=== PATIENT | male | born 1980 | race Caucasian/White ===

== ENCOUNTER 2022-10-18 05:42 | Emergency (ER) | payer OTHER ==
[~2022-10-18] VITALS: Ht 177.8 cm; Wt 95.3 kg
[2022-10-18 05:55] VITALS: BP_SYST 152; PULSE 100; RESP 20; TEMP 98; O2SAT 98
--- NOTE | 2022-10-18 06:03 | NUR ---
PT BIB FROM HOME STATUS FALL LAST NIGHT AFTER REACHING A BOX USING LADDER. LOWER BACK PAIN 10/13, ALEVE WAS TAKEN AT 2300, LOWER BACK FELL STIFF AND PAIN. DAMON ELIZABETH
--- NOTE | 2022-10-18 06:15 | NUR ---
ER at bedside examining patient.
--- NOTE | 2022-10-18 06:19 | NUR ---
pt bib self. c/o back pain related to fall that occured 10/17 at around 9pm. Pt states to have been on a 9ft tall ladder when he missed a step and fell to the floor. pt denies LOC. Pt states back pain woke him up and prompted him to come to ER. Pt states pain 11/13. Pt denies N/V/D. Pt denies SOB. Bruising and redness noted on pt L back. No active bleeding or lacerations noted. Pt AAOX4. VSS. Skin dry and intact. PERRLA. Pt speaking full complete sentences. pt in bed with side rails up
--- NOTE | 2022-10-18 06:30 | NUR ---
Patient transported to radiology via WHEELCHAIR, accompanied by TECH.
--- NOTE | 2022-10-18 07:21 | NUR ---
Report received from ROMEO Olmos
--- NOTE | 2022-10-18 07:36 | NUR ---
Patient a&ox4 and stable.
[2022-10-18] MEDS ORDERED: TRAM50TA2 PO (08:23)
[2022-10-18] MEDS ORDERED: IBUP-1971 PO (08:23)
[2022-10-18] MEDS ORDERED: MORPHINE 4 MG INJ. 4 MG/ML VIAL IM ONE (08:30)
[2022-10-18] MEDS ORDERED: MORPHINE 4 MG INJ. 4 MG/ML VIAL IVP ONE (08:30)
[2022-10-18 09:30] VITALS: BP_SYST 145; PULSE 74; RESP 17; TEMP 97.3; O2SAT 98
--- NOTE | 2022-10-18 09:32 | NUR ---
Patient given written and verbal discharge instructions and verbalizes understanding. ER MD DR PEREZ discussed with patient the results and treatment provided. Patient in stable condition. ID arm band removed. Rx of MOTRIN AND TRAMODOL given. Patient educated on pain management and to follow up with PMD. Pain Scale 5/10. Opportunity for questions provided and answered. Medication side effect fact sheet provided.
== END 2022-10-18 09:32 | disposition home or self-care (01) ==
LOC: SED 05:42
DX: S33.5XXA Sprain of ligaments of lumbar spine, initial encounter (principal); S30.0XXA Contusion of lower back and pelvis, initial encounter; Z79.899 Other long term (current) drug therapy; W11.XXXA Fall on and from ladder, initial encounter; Y93.89 Activity, other specified; Y92.89 Other specified places as the place of occurrence of the external cause; Y99.8 Other external cause status
CPT/HCPCS: 99285; 72131; 72192; 76376; 96372; J2270